=== PATIENT | male | born 1965 | race African-American/Black ===

== ENCOUNTER 2017-01-12 08:11 | Day surgery (SDC) | payer MEDICARE, MEDICAID, OTHER ==
[~2017-01-12] VITALS: Ht 175.3 cm; Wt 90.7 kg
[~2017-01-12 08:11] MED LIST: AMLO10TA4 PO; ASPI-867 PO; CLOP75TA2 PO; GABA300C PO; HYDR-3511 PO; INSNOV SUBCUT; INSU100C11 SQ; SIMV20TA6 PO; SITA50TA3 PO
[2017-01-12] MEDS ORDERED: IODIXANOL 320MG/ML 100 ML BOTTLE IV ONE (09:47)
[2017-01-12] MEDS ORDERED: LIDOCAINE HCL 1% 20ML VIAL (Pyxis) INJ ONE (09:47)
[2017-01-12] MEDS ORDERED: HYDROCORTISONE SOD SUCCINATE 250 MG/2 ML VIAL ONE (09:50)
[2017-01-12] MEDS ORDERED: DIPHENHYDRAMINE 50MG/ML VIAL ONE (09:50)
[2017-01-12] MEDS ORDERED: FAMOTIDINE 20MG/2ML VIAL IV ONE (09:50)
[2017-01-12] MEDS ORDERED: MIDAZOLAM HCL 2 MG/2 ML VIAL ONE ×2 (10:03→10:30)
[2017-01-12] MEDS ORDERED: FENTANYL CITRATE/PF 50MCG/ML 2ML VIAL ONE (10:03)
[2017-01-12] MEDS ORDERED: jardiance PO (10:21)
[2017-01-12] MEDS ORDERED: ASPI-1035 PO (10:21)
[2017-01-12] MEDS ORDERED: LABETALOL HCL 5MG/ML VIAL 20ML IV ONE (10:47)
[2017-01-12] MEDS ORDERED: ONDANSETRON HCL 4MG/2ML VIAL IV PRN (17:00)
[2017-01-12] MEDS ORDERED: ACETAMINOPHEN 325MG TABLET PO PRN (17:00)
[2017-01-12] MEDS ORDERED: MORPHINE SULFATE 2 MG/ML CPJ (NOT FOR IM USE) IV PRN (17:00)
[2017-01-13] MEDS ORDERED: GABAPENTIN 300MG CAPSULE PO SCH (09:00)
[2017-01-13] MEDS ORDERED: CLOPIDOGREL 75MG TABLET PO SCH (09:00)
[2017-01-13] MEDS ORDERED: ASPIRIN 325MG EC TABLET PO SCH (09:00)
[2017-01-13] MEDS ORDERED: ASPIRIN 81MG EC TABLET PO SCH (09:00)
[2017-01-13] MEDS ORDERED: AMLODIPINE 10MG TABLET PO SCH (09:00)
== END 2017-01-12 17:10 | disposition home or self-care (01) ==
LOC: CCL 08:11
PROVIDERS: ATTEND Specialist
DX: I70.211 Atherosclerosis of native arteries of extremities with intermittent claudication, right leg (principal); E11.319 Type 2 diabetes mellitus with unspecified diabetic retinopathy without macular edema; E78.5 Hyperlipidemia, unspecified; I12.9 Hypertensive chronic kidney disease with stage 1 through stage 4 chronic kidney disease, or unspecified chronic kidney disease; E11.22 Type 2 diabetes mellitus with diabetic chronic kidney disease; N18.9 Chronic kidney disease, unspecified; Z79.4 Long term (current) use of insulin; Z89.512 Acquired absence of left leg below knee
CPT/HCPCS: 36247; 75710; 82962; C1760; C1769; C1893; J1200; J1644; J1720; J2250; J3010; J3490; Q9967

== ENCOUNTER 2018-07-26 06:27 | Inpatient (IN) | payer MEDICARE, OTHER ==
[2018-07-26] VITALS (12 sets, daily range): BP systolic 124–154; BP diastolic 50–91
[~2018-07-26] VITALS: Ht 175.3 cm; Wt 93.9 kg
[~2018-07-26 06:27] MED LIST changes: +ASA5EC PO; +ASPI-1159 PO; -ASPI-867 PO; +CLOP75TA16 PO; -CLOP75TA2 PO; +DIPH25CA83 PO; +GABA-290 PO; +HYDR-523 PO; +P50 PO; +SITA100T11 PO; +ZOLP10TA2 PO; +jardiance PO
[2018-07-26] MEDS ORDERED: FENTANYL CITRATE/PF 50MCG/ML 2ML VIAL ONE (08:20)
[2018-07-26] MEDS ORDERED: MIDAZOLAM HCL 2 MG/2 ML VIAL ONE (08:20)
[2018-07-26] MEDS ORDERED: LIDOCAINE HCL 1% 20ML VIAL (Pyxis) INJ ONE (08:21)
[2018-07-26] MEDS ORDERED: IODIXANOL 320MG/ML 100 ML BOTTLE IV ONE ×2 (08:21→09:22)
[2018-07-26] MEDS ORDERED: HYDROCORTISONE SOD SUCCINATE 250 MG/2 ML VIAL ONE (08:21)
[2018-07-26] MEDS ORDERED: DIPHENHYDRAMINE 50MG/ML VIAL ONE (08:21)
[2018-07-26] MEDS ORDERED: FAMOTIDINE 20MG/2ML VIAL IV ONE (08:22)
[2018-07-26] MEDS ORDERED: IOHEXOL-300 100 ML BOTTLE ONE (08:58)
[2018-07-26] MEDS ORDERED: ASPIRIN 325MG TABLET ONE (09:42)
[2018-07-26] MEDS ORDERED: CLOPIDOGREL 75MG TABLET ONE (09:42)
[2018-07-26] MEDS ORDERED: ONDANSETRON HCL 4MG/2ML INJ IV PRN ×2 (10:00→13:45)
[2018-07-26] MEDS ORDERED: ATROPINE SULFATE 1MG/10ML SYR IV PRN (10:00)
[2018-07-26] MEDS ORDERED: ACETAMINOPHEN 325MG TABLET PO PRN ×2 (10:00→13:45)
[2018-07-26] MEDS ORDERED: NA PHOS,M-B/NA PHOS,DI-BA ENEMA 118ML PR PRN (13:45)
[2018-07-26] MEDS ORDERED: GUAIFENESIN 200MG/10ML SUGAR FREE UDC PO PRN (13:45)
[2018-07-26] MEDS ORDERED: DOCUSATE SODIUM 100MG CAPSULE PO PRN (13:45)
[2018-07-26] MEDS ORDERED: CLONIDINE 0.1MG TABLET PO PRN (13:45)
[2018-07-26] MEDS ORDERED: HYDROCODONE/ACETAMINOPHEN 5/325MG TABLET PO PRN (13:45)
[2018-07-26] MEDS ORDERED: MAGNESIUM/ALUMINUM HYDROXIDE/SIMETHICONE 30ML UDC PO PRN (13:45)
[2018-07-26] MEDS ORDERED: HEPARIN SODIUM 1,000 UNIT/1ML VIAL IV ONE (15:17)
[2018-07-26] MEDS: AMLODIPINE 10MG TABLET PO SCH (15:17)
[2018-07-26] MEDS ORDERED: DEXTROSE 50% WATER 50ML SYRINGE IV PRN (15:30)
[2018-07-26] MEDS ORDERED: NICARDIPINE 100MCG/ML 10ML VIAL (CATH LAB) IV ONE (16:07)
[2018-07-26] MEDS ORDERED: NITROGLYCERIN 50MCG/ML 10ML VIAL (CATH LAB) IV ONE (16:07)
[2018-07-26] MEDS: BLOOD SUGAR DIAGNOSTIC STRIP TEST SCH ×2 (16:55→21:26)
[2018-07-26] MEDS: INSULIN LISPRO 100 UNITS/ML SUBCUT SCH ×2 (17:18→21:34)
[2018-07-26] MEDS ORDERED: ATORVASTATIN CALCIUM 20MG TABLET PO SCH (21:00)
[2018-07-26] MEDS: FAMOTIDINE 20MG TABLET PO SCH (21:32)
[2018-07-26] MEDS: GABAPENTIN 300MG CAPSULE PO SCH (21:33)
[2018-07-27] VITALS: BP 137/83
[2018-07-27 01:49] VITALS: BP 148/90
[2018-07-27 04:00] VITALS: BP 139/65
[2018-07-27 06:02] VITALS: BP 143/81
[2018-07-27] MEDS: BLOOD SUGAR DIAGNOSTIC STRIP TEST SCH ×2 (06:40→11:53)
[2018-07-27 07:29] LABS: BASOPHILS % 0.5 % (0.0-2.0); HEMATOCRIT. 43.8 % (42.0-52.0); HEMOGLOBIN. 14.1 g/dL (14.0-18.0); LYMPHOCYTES % 17.9 % (20.0-50.0); MEAN CORPUSCULAR HEMOGLOBIN 27.2 pg (28.0-32.0); MEAN CORPUSCULAR VOLUME 84.2 fL (80.0-94.0); MEAN PLATELET VOLUME 8.6 fl (7.4-10.4); NEUTROPHILS % 76.6 % (40.0-76.0); PLATELET 231 x1000/uL (130-400); RED BLOOD CELL COUNT 5.19 mill/uL (4.7-6.1); RED CELL DISTRIBUTION WIDTH 14.6 % (11.6-14.6)
[2018-07-27 08:01] VITALS: BP 129/25
[2018-07-27] MEDS: AMLODIPINE 10MG TABLET PO SCH (08:26)
[2018-07-27] MEDS: FAMOTIDINE 20MG TABLET PO SCH (08:28)
[2018-07-27] MEDS: GABAPENTIN 300MG CAPSULE PO SCH (08:29)
[2018-07-27] MEDS: INSULIN LISPRO 100 UNITS/ML SUBCUT SCH ×2 (08:31→11:53)
[2018-07-27] MEDS ORDERED: ASPIRIN 325MG TABLET PO SCH (09:00)
[2018-07-27] MEDS ORDERED: CLOPIDOGREL 75MG TABLET PO SCH (09:00)
[2018-07-27] MEDS ORDERED: GABAPENTIN 300MG CAPSULE PO SCH (09:00)
[2018-07-27] MEDS ORDERED: INSU100I22 SQ (09:44)
[2018-07-27 09:45] VITALS: BP 134/78
== END 2018-07-27 12:08 | disposition home or self-care (01) | DRG 247 ==
LOC: CCL 06:27 → 3WST 06:28
PROVIDERS: ADMIT Hospitalist; ATTEND Hospitalist
PROC: 4A023N7 Measurement of Cardiac Sampling and Pressure, Left Heart, Percutaneous Approach (ICD-10-PCS; principal; 2018-07-26)
PROC: 027135Z Dilation of Coronary Artery, Two Arteries with Two Drug-eluting Intraluminal Devices, Percutaneous Approach (ICD-10-PCS; 2018-07-26)
PROC: B2111ZZ Fluoroscopy of Multiple Coronary Arteries using Low Osmolar Contrast (ICD-10-PCS; 2018-07-26)
PROC: B2151ZZ Fluoroscopy of Left Heart using Low Osmolar Contrast (ICD-10-PCS; 2018-07-26)
PROC: B240ZZ3 Ultrasonography of Single Coronary Artery, Intravascular (ICD-10-PCS; 2018-07-26)
DX: T82.855A Stenosis of coronary artery stent, initial encounter (principal); I25.110 Atherosclerotic heart disease of native coronary artery with unstable angina pectoris; I11.9 Hypertensive heart disease without heart failure; E11.319 Type 2 diabetes mellitus with unspecified diabetic retinopathy without macular edema; E11.51 Type 2 diabetes mellitus with diabetic peripheral angiopathy without gangrene; E78.5 Hyperlipidemia, unspecified; H54.7 Unspecified visual loss; Y83.1 Surgical operation with implant of artificial internal device as the cause of abnormal reaction of the patient, or of later complication, without mention of misadventure at the time of the procedure; Y92.89 Other specified places as the place of occurrence of the external cause; Z79.02 Long term (current) use of antithrombotics/antiplatelets; Z79.4 Long term (current) use of insulin; Z89.512 Acquired absence of left leg below knee; Z90.49 Acquired absence of other specified parts of digestive tract; Z91.041 Radiographic dye allergy status; Z82.49 Family history of ischemic heart disease and other diseases of the circulatory system
CPT/HCPCS: 36415; 80048; 82962; 83036; 85347; 92928; 92978; 93458; C1725; C1753; C1769; C1874 ×2; C1887; C1893; J1200; J1644; J1720; J1815; J2250; J3010; J3490; Q9967

== ENCOUNTER 2019-05-09 07:03 | Day surgery (SDC) | payer MEDICARE, OTHER, MEDICAID ==
[~2019-05-09] VITALS: Ht 175.3 cm; Wt 87.5 kg
[~2019-05-09 07:03] MED LIST changes: -ASA5EC PO; -ASPI-1159 PO; +ASPI-1393 PO; -CLOP75TA16 PO; +CLOP75TA4 PO; -DIPH25CA83 PO; -GABA300C PO; -HYDR-3511 PO; -INSU100C11 SQ; +INSU100I22 SQ; -P50 PO; -SITA50TA3 PO; -jardiance PO
[2019-05-09] MEDS ORDERED: IODIXANOL 320MG/ML 100 ML BOTTLE IV ONE (08:17)
[2019-05-09] MEDS ORDERED: LIDOCAINE HCL 1% 20ML VIAL (Pyxis) INJ ONE (08:17)
[2019-05-09] MEDS ORDERED: DIPHENHYDRAMINE 50MG/ML VIAL ONE (08:44)
[2019-05-09] MEDS ORDERED: HYDROCORTISONE SOD SUCCINATE 250 MG/2 ML VIAL ONE (08:45)
[2019-05-09] MEDS ORDERED: FAMOTIDINE 20MG/2ML VIAL IV ONE (08:45)
[2019-05-09] MEDS ORDERED: FENTANYL CITRATE/PF 50MCG/ML 2ML VIAL ONE (09:06)
[2019-05-09] MEDS ORDERED: MIDAZOLAM HCL 2 MG/2 ML VIAL ONE (09:06)
[2019-05-09] MEDS ORDERED: INSULIN REGULAR (HUMULIN R) UD 100 UNITS/ML SYR SUBCUT NR (09:30)
[2019-05-09] MEDS ORDERED: ACETAMINOPHEN 325MG TABLET PO PRN (09:30)
[2019-05-09] MEDS ORDERED: ONDANSETRON HCL 4MG/2ML INJ IV PRN (09:30)
== END 2019-05-09 16:15 | disposition home or self-care (01) ==
LOC: CCL 07:03
PROVIDERS: ATTEND Specialist
DX: T82.856A Stenosis of peripheral vascular stent, initial encounter (principal); I25.10 Atherosclerotic heart disease of native coronary artery without angina pectoris; E78.5 Hyperlipidemia, unspecified; I12.9 Hypertensive chronic kidney disease with stage 1 through stage 4 chronic kidney disease, or unspecified chronic kidney disease; E11.42 Type 2 diabetes mellitus with diabetic polyneuropathy; E11.22 Type 2 diabetes mellitus with diabetic chronic kidney disease; N18.9 Chronic kidney disease, unspecified; N40.1 Benign prostatic hyperplasia with lower urinary tract symptoms; K21.9 Gastro-esophageal reflux disease without esophagitis; Z79.4 Long term (current) use of insulin; Z79.82 Long term (current) use of aspirin; Z79.899 Other long term (current) drug therapy; Z88.8 Allergy status to other drugs, medicaments and biological substances; Z91.041 Radiographic dye allergy status; Z89.512 Acquired absence of left leg below knee; Z90.49 Acquired absence of other specified parts of digestive tract; Z98.890 Other specified postprocedural states; Z83.3 Family history of diabetes mellitus; Z82.49 Family history of ischemic heart disease and other diseases of the circulatory system; Z87.891 Personal history of nicotine dependence
CPT/HCPCS: 36246; 75710; 82962; 99152; 99153; C1760; C1769; C1893; J1200; J1644; J1720; J1815; J2250; J3010; J3490; Q9967; G0500

== ENCOUNTER 2019-06-13 10:35 | Inpatient (IN) | payer MEDICARE, OTHER ==
[~2019-06-13] VITALS: Ht 175.3 cm; Wt 89.8 kg
[~2019-06-13 10:35] MED LIST changes: -AMLO10TA4 PO
[2019-06-13] MEDS: SODIUM CHLORIDE 0.45% 1,000 ML IV SCH ×2 (12:18→23:58)
[2019-06-13] MEDS ORDERED: IODIXANOL 320MG/ML 100 ML BOTTLE IV ONE (14:17)
[2019-06-13] MEDS ORDERED: ONDANSETRON HCL 4MG/2ML INJ IV PRN (15:15)
[2019-06-13] MEDS ORDERED: ACETAMINOPHEN 325MG TABLET PO PRN (15:15)
[2019-06-13] MEDS ORDERED: ATROPINE SULFATE 1MG/10ML SYR IV PRN (15:15)
[2019-06-13 16:00] VITALS: BP 159/101
[2019-06-13 16:40] VITALS: BP 163/67
[2019-06-13 17:02] VITALS: BP 152/112
[2019-06-13 17:46] VITALS: BP 149/100
[2019-06-13] MEDS ORDERED: HYDROCODONE/ACETAMINOPHEN 5/325MG TABLET PO PRN (19:30)
[2019-06-13] MEDS ORDERED: DEXTROSE 50% WATER 50ML SYRINGE IV PRN (19:30)
[2019-06-13] MEDS ORDERED: MEDICATION NOT ON FORMULARY EA (Simvastatin 20 MG) PO SCH (19:30)
[2019-06-13] MEDS ORDERED: ZOLPIDEM TARTRATE 5MG TABLET PO PRN (19:45)
[2019-06-13 20:00] VITALS: BP 162/72
[2019-06-13] MEDS: GABAPENTIN 300MG CAPSULE PO SCH (20:01)
[2019-06-13] MEDS: BLOOD SUGAR DIAGNOSTIC STRIP TEST SCH (20:22)
[2019-06-13] MEDS: INSULIN LISPRO 100 UNITS/ML SUBCUT SCH (20:35)
[2019-06-13] MEDS ORDERED: ATORVASTATIN CALCIUM 10MG TABLET PO SCH (21:00)
[2019-06-13] MEDS ORDERED: INSULIN LISPRO 100 UNITS/ML SUBCUT SCH (21:00)
[2019-06-13 22:00] VITALS: BP 156/117
[2019-06-14] VITALS: BP 151/86
[2019-06-14 02:00] VITALS: BP 144/86
[2019-06-14 04:00] VITALS: BP 134/74
[2019-06-14 06:00] VITALS: BP 152/95
[2019-06-14] MEDS: BLOOD SUGAR DIAGNOSTIC STRIP TEST SCH (06:13)
[2019-06-14] MEDS ORDERED: ASPIRIN 325MG TABLET PO SCH (09:00)
[2019-06-14] MEDS ORDERED: LINAGLIPTIN 5MG TABLET PO SCH (09:00)
[2019-06-14] MEDS ORDERED: MEDICATION NOT ON FORMULARY EA (Sitagliptin Phosphate (Januvia) 100 MG) PO SCH (09:00)
[2019-06-14] MEDS ORDERED: ASPIRIN 81MG EC TABLET PO SCH (09:00)
[2019-06-14] MEDS ORDERED: CLOPIDOGREL 75MG TABLET PO SCH ×2 (09:00)
[2019-06-14 09:48] LABS: BASOPHILS % 0.2 % (0.0-2.0); HEMATOCRIT. 37.6 % (42.0-52.0); HEMOGLOBIN. 12.2 g/dL (14.0-18.0); LYMPHOCYTES % 14.3 % (20.0-50.0); MEAN CORPUSCULAR HEMOGLOBIN 26.7 pg (28.0-32.0); MEAN CORPUSCULAR VOLUME 82.4 fL (80.0-94.0); MEAN PLATELET VOLUME 7.7 fl (7.4-10.4); MONOCYTES % 4.6 % (2.0-8.0); NEUTROPHILS % 80.9 % (40.0-76.0); PLATELET 403 x1000/uL (130-400); RED BLOOD CELL COUNT 4.57 mill/uL (4.7-6.1); RED CELL DISTRIBUTION WIDTH 14.9 % (11.6-14.6)
[2019-06-14 09:51] LABS: CHLORIDE 100 mEq/L (98-107)
[2019-06-14] MEDS: GABAPENTIN 300MG CAPSULE PO SCH (09:54)
[2019-06-14] MEDS: INSULIN LISPRO 100 UNITS/ML SUBCUT SCH (10:03)
== END 2019-06-14 10:54 | disposition home or self-care (01) | DRG 287 ==
LOC: CCL 10:35 → 3WST 10:36
PROVIDERS: ADMIT Specialist; ATTEND Specialist
PROC: 4A023N7 Measurement of Cardiac Sampling and Pressure, Left Heart, Percutaneous Approach (ICD-10-PCS; principal; 2019-06-13)
PROC: B2111ZZ Fluoroscopy of Multiple Coronary Arteries using Low Osmolar Contrast (ICD-10-PCS; 2019-06-13)
DX: I25.118 Atherosclerotic heart disease of native coronary artery with other forms of angina pectoris (principal); T82.855A Stenosis of coronary artery stent, initial encounter; I10 Essential (primary) hypertension; E78.5 Hyperlipidemia, unspecified; E88.81 Metabolic syndrome and other insulin resistance; E11.40 Type 2 diabetes mellitus with diabetic neuropathy, unspecified; Y83.8 Other surgical procedures as the cause of abnormal reaction of the patient, or of later complication, without mention of misadventure at the time of the procedure; G54.6 Phantom limb syndrome with pain; I25.82 Chronic total occlusion of coronary artery; E11.51 Type 2 diabetes mellitus with diabetic peripheral angiopathy without gangrene; F51.04 Psychophysiologic insomnia; N40.0 Benign prostatic hyperplasia without lower urinary tract symptoms; Z79.4 Long term (current) use of insulin; Z82.49 Family history of ischemic heart disease and other diseases of the circulatory system; Z95.5 Presence of coronary angioplasty implant and graft; Z89.512 Acquired absence of left leg below knee; I25.2 Old myocardial infarction; Z90.49 Acquired absence of other specified parts of digestive tract; Z91.041 Radiographic dye allergy status; Y92.89 Other specified places as the place of occurrence of the external cause
CPT/HCPCS: 36415; 71045; 80048; 82962; 93005; 93458; C1760; C1769; C1887; C1893; J1200; J1644; J1720; J1815; J2250; J3010; J3490; Q9967

== ENCOUNTER 2019-06-23 19:14 | Inpatient (IN) | payer MEDICARE, OTHER ==
[~2019-06-23] VITALS: Ht 175.3 cm; Wt 91.2 kg
[2019-06-23] MEDS ORDERED: SODIUM CHLORIDE 0.9% 1,000 ML IV ONE (19:16)
[2019-06-23 19:39] LABS: BASOPHILS % 0.6 % (0.0-2.0); CHLORIDE 101 mEq/L (98-107); EOSINOPHILS % 1.4 % (0.0-5.0); HEMATOCRIT. 32.6 % (42.0-52.0); HEMOGLOBIN. 10.5 g/dL (14.0-18.0); LYMPHOCYTES % 23.2 % (20.0-50.0); MEAN CORPUSCULAR HEMOGLOBIN 26.5 pg (28.0-32.0); MEAN CORPUSCULAR VOLUME 82.5 fL (80.0-94.0); MEAN PLATELET VOLUME 7.4 fl (7.4-10.4); MONOCYTES % 4.8 % (2.0-8.0); PLATELET 351 x1000/uL (130-400); RED BLOOD CELL COUNT 3.95 mill/uL (4.7-6.1); RED CELL DISTRIBUTION WIDTH 15.2 % (11.6-14.6)
[2019-06-23 19:40] LABS: PROTHROMBIN TIME 10.4 sec (9.6-11.0)
[2019-06-23 19:43] LABS: ETHANOL BLOOD < 10 mg/dL
[2019-06-23 19:46] LABS: LDL CHOLESTEROL 54 mg/dL (5-100)
[2019-06-23 19:48] LABS: CREATINE KINASE 116 IU/L (39-308)
[2019-06-23] MEDS ORDERED: ASPIRIN 81MG TABLET PO ONE (21:45)
[2019-06-23] MEDS ORDERED: ACETAMINOPHEN 325MG TABLET PO PRN (21:45)
[2019-06-23] MEDS ORDERED: HYDROCODONE/ACETAMINOPHEN 5/325MG TABLET PO PRN (21:45)
[2019-06-23] MEDS ORDERED: FUROSEMIDE 20MG/2ML VIAL IVP ONE (21:45)
[2019-06-23] MEDS ORDERED: CLONIDINE 0.1MG TABLET PO PRN (21:45)
[2019-06-23] MEDS ORDERED: ZOLPIDEM TARTRATE 5MG TABLET PO PRN (21:45)
[2019-06-23] MEDS ORDERED: ONDANSETRON HCL 4MG/2ML INJ IV PRN (21:45)
[2019-06-23] MEDS ORDERED: ENOXAPARIN 30MG/0.3ML SYR SUBCUT SCH (22:00)
[2019-06-23] MEDS ORDERED: ENOXAPARIN 40MG/0.4ML SYR SUBCUT SCH (23:00)
[2019-06-23] MEDS ORDERED: INSULIN GLARGINE UD 100 UNITS/ML SYR SUBCUT SCH (23:00)
[2019-06-23] MEDS: ATORVASTATIN CALCIUM 40MG TABLET PO SCH (23:03)
[2019-06-23 23:40] VITALS: BP 141/84
[2019-06-24 00:34] LABS: CLARITY URINE CLEAR (CLEAR); COLOR URINE YELLOW (YELLOW); KETONES URINE NEGATIVE (NEGATIVE); LEUKOCYTE ESTERASE URINE NEGATIVE (NEGATIVE); NITRITE URINE NEGATIVE (NEGATIVE); OCCULT BLOOD URINE NEGATIVE (NEGATIVE); PROTEIN URINE NEGATIVE (NEGATIVE)
[2019-06-24 00:55] LABS: *AMPHETAMINES SCREEN URINE NEGATIVE (NEGATIVE); *BARBITURATES SCREEN URINE NEGATIVE (NEGATIVE); *BENZODIAZEPINES SCREEN URINE NEGATIVE (NEGATIVE); *COCAINE SCREEN URINE NEGATIVE (NEGATIVE); METHADONE URINE SCREEN NEGATIVE (NEGATIVE); OPIATES URINE SCREEN NEGATIVE (NEGATIVE)
[2019-06-24 00:56] LABS: CANNABINOID URINE SCREEN NEGATIVE (NEGATIVE); PHENCYCLIDINE URINE SCREEN NEGATIVE (NEGATIVE)
[2019-06-24] MEDS ORDERED: DEXTROSE 50% WATER 50ML SYRINGE IV PRN (03:30)
[2019-06-24 04:00] VITALS: BP 112/60
[2019-06-24] MEDS ORDERED: SIMV40TA5 PO (04:36)
[2019-06-24] MEDS: BLOOD SUGAR DIAGNOSTIC STRIP TEST SCH ×4 (06:47→20:41)
[2019-06-24] MEDS: INSULIN LISPRO 100 UNITS/ML SUBCUT SCH ×4 (07:08→20:41)
[2019-06-24 08:00] VITALS: BP 158/90
[2019-06-24 08:36] LABS: BASOPHILS % 0.7 % (0.0-2.0); EOSINOPHILS % 1.4 % (0.0-5.0); HEMATOCRIT. 32.2 % (42.0-52.0); HEMOGLOBIN. 10.3 g/dL (14.0-18.0); LYMPHOCYTES % 25.3 % (20.0-50.0); MEAN CORPUSCULAR HEMOGLOBIN 26.5 pg (28.0-32.0); MEAN PLATELET VOLUME 7.6 fl (7.4-10.4); MONOCYTES % 5.1 % (2.0-8.0); NEUTROPHILS % 67.5 % (40.0-76.0); PLATELET 330 x1000/uL (130-400); RED BLOOD CELL COUNT 3.87 mill/uL (4.7-6.1); RED CELL DISTRIBUTION WIDTH 15.2 % (11.6-14.6)
[2019-06-24 08:52] LABS: CHLORIDE 103 mEq/L (98-107)
[2019-06-24] MEDS: ASPIRIN 81MG EC TABLET PO SCH (08:55)
[2019-06-24] MEDS: GABAPENTIN 300MG CAPSULE PO SCH ×3 (08:55→20:31)
[2019-06-24] MEDS: CLOPIDOGREL 75MG TABLET PO SCH (08:55)
[2019-06-24 08:56] LABS: LDL CHOLESTEROL 56 mg/dL (5-100)
[2019-06-24 08:58] LABS: HDL CHOLESTEROL 39 mg/dL (40-59)
[2019-06-24] MEDS ORDERED: ENOXAPARIN 30MG/0.3ML SYR SUBCUT SCH (09:00)
[2019-06-24 11:54] VITALS: BP 149/86
[2019-06-24] MEDS: FAMOTIDINE 20MG TABLET PO SCH (14:20)
[2019-06-24 16:00] VITALS: BP 123/66
[2019-06-24 20:00] VITALS: BP 140/80
[2019-06-24] MEDS: ATORVASTATIN CALCIUM 40MG TABLET PO SCH (20:31)
[2019-06-24 21:12] LABS: *AMPHETAMINES SCREEN URINE NEGATIVE (NEGATIVE); *BARBITURATES SCREEN URINE NEGATIVE (NEGATIVE); *BENZODIAZEPINES SCREEN URINE NEGATIVE (NEGATIVE); *COCAINE SCREEN URINE NEGATIVE (NEGATIVE); METHADONE URINE SCREEN NEGATIVE (NEGATIVE)
[2019-06-24 21:13] LABS: CANNABINOID URINE SCREEN NEGATIVE (NEGATIVE); OPIATES URINE SCREEN NEGATIVE (NEGATIVE); PHENCYCLIDINE URINE SCREEN NEGATIVE (NEGATIVE)
[2019-06-24] MEDS ORDERED: INSULIN GLARGINE UD 100 UNITS/ML SYR SUBCUT SCH (22:00)
[2019-06-24] MEDS: INSULIN GLARGINE UD 100 UNITS/ML SYR SUBCUT SCH (22:34)
[2019-06-25] VITALS: BP 116/60
[2019-06-25 04:00] VITALS: BP 142/83
[2019-06-25 06:16] LABS: BASOPHILS % 0.8 % (0.0-2.0); EOSINOPHILS % 1.4 % (0.0-5.0); HEMATOCRIT. 32.1 % (42.0-52.0); HEMOGLOBIN. 10.3 g/dL (14.0-18.0); LYMPHOCYTES % 23.7 % (20.0-50.0); MEAN CORPUSCULAR HEMOGLOBIN 26.5 pg (28.0-32.0); MEAN CORPUSCULAR VOLUME 82.4 fL (80.0-94.0); MEAN PLATELET VOLUME 7.6 fl (7.4-10.4); MONOCYTES % 5.2 % (2.0-8.0); NEUTROPHILS % 68.9 % (40.0-76.0); PLATELET 323 x1000/uL (130-400); RED CELL DISTRIBUTION WIDTH 15.2 % (11.6-14.6)
[2019-06-25] MEDS: BLOOD SUGAR DIAGNOSTIC STRIP TEST SCH ×4 (06:20→21:00)
[2019-06-25] MEDS: INSULIN LISPRO 100 UNITS/ML SUBCUT SCH ×4 (06:45→22:15)
[2019-06-25 06:52] LABS: CHLORIDE 102 mEq/L (98-107)
[2019-06-25 07:00] LABS: HDL CHOLESTEROL 40 mg/dL (40-59)
[2019-06-25 07:01] LABS: LDL CHOLESTEROL 54 mg/dL (5-100)
[2019-06-25 07:02] LABS: CREATINE KINASE 86 IU/L (39-308)
[2019-06-25 07:05] LABS: CREATINE KINASE MB FRACTION 1.2 ng/mL (0.5-3.6)
[2019-06-25 08:16] VITALS: BP 115/59
[2019-06-25] MEDS: ASPIRIN 81MG EC TABLET PO SCH (08:21)
[2019-06-25] MEDS: CLOPIDOGREL 75MG TABLET PO SCH (08:21)
[2019-06-25] MEDS: FAMOTIDINE 20MG TABLET PO SCH (08:21)
[2019-06-25] MEDS: ENOXAPARIN 40MG/0.4ML SYR SUBCUT SCH (08:22)
[2019-06-25] MEDS: GABAPENTIN 300MG CAPSULE PO SCH ×4 (08:22→22:20)
[2019-06-25 12:00] VITALS: BP 145/85
[2019-06-25 16:00] VITALS: BP 149/88
[2019-06-25 20:17] VITALS: BP 143/81
[2019-06-25] MEDS: INSULIN GLARGINE UD 100 UNITS/ML SYR SUBCUT SCH (22:16)
[2019-06-25] MEDS: ATORVASTATIN CALCIUM 10MG TABLET PO SCH (22:16)
[2019-06-26 00:01] VITALS: BP 144/77
[2019-06-26 04:00] VITALS: BP 143/67
[2019-06-26] MEDS: BLOOD SUGAR DIAGNOSTIC STRIP TEST SCH ×4 (06:06→21:56)
[2019-06-26] MEDS: INSULIN LISPRO 100 UNITS/ML SUBCUT SCH ×4 (06:09→21:00)
[2019-06-26 07:50] LABS: CHLORIDE 101 mEq/L (98-107)
[2019-06-26 08:00] VITALS: BP 123/70
[2019-06-26 08:16] LABS: BASOPHILS % 0.5 % (0.0-2.0); EOSINOPHILS % 1.2 % (0.0-5.0); HEMATOCRIT. 34.3 % (42.0-52.0); HEMOGLOBIN. 11.1 g/dL (14.0-18.0); LYMPHOCYTES % 21.8 % (20.0-50.0); MEAN CORPUSCULAR HEMOGLOBIN 26.6 pg (28.0-32.0); MEAN CORPUSCULAR VOLUME 82.2 fL (80.0-94.0); MEAN PLATELET VOLUME 7.6 fl (7.4-10.4); MONOCYTES % 6.2 % (2.0-8.0); NEUTROPHILS % 70.3 % (40.0-76.0); PLATELET 322 x1000/uL (130-400); RED BLOOD CELL COUNT 4.17 mill/uL (4.7-6.1); RED CELL DISTRIBUTION WIDTH 14.9 % (11.6-14.6)
[2019-06-26] MEDS: ASPIRIN 81MG EC TABLET PO SCH (09:13)
[2019-06-26] MEDS: CLOPIDOGREL 75MG TABLET PO SCH (09:13)
[2019-06-26] MEDS: FAMOTIDINE 20MG TABLET PO SCH (09:13)
[2019-06-26] MEDS: ENOXAPARIN 40MG/0.4ML SYR SUBCUT SCH (09:14)
[2019-06-26 12:00] VITALS: BP 132/73
[2019-06-26] MEDS ORDERED: GABAPENTIN 300MG CAPSULE PO SCH (15:00)
[2019-06-26 16:00] VITALS: BP 131/74
[2019-06-26] MEDS: PANTOPRAZOLE SODIUM 40 MG/VIAL IV SCH (17:52)
[2019-06-26 20:00] VITALS: BP 117/70
[2019-06-26] MEDS: CARVEDILOL 3.125 MG TABLET PO SCH ×2 (21:00→21:57)
[2019-06-26] MEDS: ATORVASTATIN CALCIUM 10MG TABLET PO SCH (21:57)
[2019-06-26] MEDS: GABAPENTIN 300MG CAPSULE PO SCH (22:02)
[2019-06-26] MEDS: INSULIN GLARGINE UD 100 UNITS/ML SYR SUBCUT SCH (22:06)
[2019-06-27] VITALS: BP 102/51
[2019-06-27 04:00] VITALS: BP 131/71
[2019-06-27] MEDS: BLOOD SUGAR DIAGNOSTIC STRIP TEST SCH (06:19)
[2019-06-27] MEDS: INSULIN LISPRO 100 UNITS/ML SUBCUT SCH (06:41)
[2019-06-27 07:53] LABS: CHLORIDE 103 mEq/L (98-107)
[2019-06-27 08:00] VITALS: BP 91/51
[2019-06-27 08:00] LABS: BASOPHILS % 0.5 % (0.0-2.0); HEMOGLOBIN. 10.4 g/dL (14.0-18.0); LYMPHOCYTES % 22.2 % (20.0-50.0); MEAN CORPUSCULAR HEMOGLOBIN 26.8 pg (28.0-32.0); MEAN CORPUSCULAR VOLUME 82.5 fL (80.0-94.0); MEAN PLATELET VOLUME 7.3 fl (7.4-10.4); MONOCYTES % 5.5 % (2.0-8.0); NEUTROPHILS % 69.8 % (40.0-76.0); PLATELET 332 x1000/uL (130-400); RED BLOOD CELL COUNT 3.89 mill/uL (4.7-6.1); RED CELL DISTRIBUTION WIDTH 15.1 % (11.6-14.6)
[2019-06-27] MEDS: ASPIRIN 81MG EC TABLET PO SCH (08:57)
[2019-06-27] MEDS: CARVEDILOL 3.125 MG TABLET PO SCH (08:58)
[2019-06-27] MEDS: ENOXAPARIN 40MG/0.4ML SYR SUBCUT SCH (08:58)
[2019-06-27] MEDS: CLOPIDOGREL 75MG TABLET PO SCH (08:58)
[2019-06-27] MEDS: PANTOPRAZOLE SODIUM 40 MG/VIAL IV SCH (08:59)
[2019-06-27] MEDS ORDERED: FUROSEMIDE 40MG TABLET PO SCH (09:00)
[2019-06-27 12:00] VITALS: BP 143/71
[2019-06-27 14:23] VITALS: BP 143/71
== END 2019-06-27 14:54 | disposition home or self-care (01) | DRG 64 ==
LOC: ER 19:14 → 8WST 21:38 → EDBEDREQ 21:50 → EDBEDREQSVC 21:50 → EDBEDREQTM 21:50 → ENRESERV 22:39 → 8WST 06-24 00:09
PROVIDERS: ADMIT Internal Medicine Nephrology; ATTEND Internal Medicine Nephrology
DX: I63.9 Cerebral infarction, unspecified (principal); L89.143 Pressure ulcer of left lower back, stage 3; E43 Unspecified severe protein-calorie malnutrition; E11.65 Type 2 diabetes mellitus with hyperglycemia; I25.10 Atherosclerotic heart disease of native coronary artery without angina pectoris; Z89.512 Acquired absence of left leg below knee; E11.51 Type 2 diabetes mellitus with diabetic peripheral angiopathy without gangrene; H54.8 Legal blindness, as defined in USA; E11.319 Type 2 diabetes mellitus with unspecified diabetic retinopathy without macular edema; I10 Essential (primary) hypertension; R29.810 Facial weakness; R47.01 Aphasia; E78.00 Pure hypercholesterolemia, unspecified; E78.5 Hyperlipidemia, unspecified; R53.1 Weakness; I65.21 Occlusion and stenosis of right carotid artery; G62.9 Polyneuropathy, unspecified; K21.9 Gastro-esophageal reflux disease without esophagitis; Z79.02 Long term (current) use of antithrombotics/antiplatelets; Z79.4 Long term (current) use of insulin; Z79.82 Long term (current) use of aspirin; Z79.899 Other long term (current) drug therapy; Z86.73 Personal history of transient ischemic attack (TIA), and cerebral infarction without residual deficits; Z95.5 Presence of coronary angioplasty implant and graft; Z91.041 Radiographic dye allergy status; Z88.9 Allergy status to unspecified drugs, medicaments and biological substances
CPT/HCPCS: 36415; 70551; 71045; 80048; 80061; 80305; 80320; 81003; 82550; 82553; 82962; 83036; 83721; 83735; 83880; 84484; 85379; 93005; 93306; 93880; 95816; 96361; 96372; 96374; 97162; 97166; 99291; C9113; J1650; J1815; J1940; J7030; Q9967; G0480

== ENCOUNTER 2020-01-04 16:06 | Inpatient (IN) | payer MEDICARE, MEDICAID, OTHER ==
[~2020-01-04] VITALS: Ht 175.3 cm; Wt 92.1 kg
[~2020-01-04 16:06] MED LIST changes: -ASPI-1393 PO; +ASPI-1497 PO; +SIMV-46 PO; -SIMV20TA6 PO; -SITA100T11 PO
[2020-01-04 17:41] LABS: BASOPHILS % 0.9 % (0.0-2.0); EOSINOPHILS % 0.6 % (0.0-5.0); HEMATOCRIT. 39.5 % (42.0-52.0); HEMOGLOBIN. 11.9 g/dL (14.0-18.0); LYMPHOCYTES % 13.5 % (20.0-50.0); MEAN CORPUSCULAR HEMOGLOBIN 22.2 pg (28.0-32.0); MEAN CORPUSCULAR VOLUME 73.9 fL (80.0-94.0); MEAN PLATELET VOLUME 7.9 fl (7.4-10.4); MONOCYTES % 5.8 % (2.0-8.0); NEUTROPHILS % 79.2 % (40.0-76.0); PLATELET 264 x1000/uL (130-400); RED BLOOD CELL COUNT 5.34 mill/uL (4.7-6.1)
[2020-01-04 17:48] LABS: CHLORIDE 94 mEq/L (98-107)
[2020-01-04 17:55] LABS: PLATELET ESTIMATE NORMAL
[2020-01-04 17:57] LABS: INR 1.2; PROTHROMBIN TIME 12.8 sec (9.6-11.0)
[2020-01-04] MEDS ORDERED: FUROSEMIDE 40MG/4ML VIAL IV ONE (18:15)
[2020-01-04] MEDS ORDERED: ASPIRIN 81MG TABLET PO ONE (18:15)
[2020-01-04] MEDS ORDERED: HYDROCODONE/ACETAMINOPHEN 5/325MG TABLET PO PRN (19:00)
[2020-01-04] MEDS ORDERED: CLONIDINE 0.1MG TABLET PO PRN (19:00)
[2020-01-04] MEDS ORDERED: ACETAMINOPHEN 325MG TABLET PO PRN (19:00)
[2020-01-04] MEDS ORDERED: ONDANSETRON HCL 4MG/2ML INJ IV PRN ×2 (19:00)
[2020-01-04] MEDS ORDERED: INSULIN GLARGINE UD 100 UNITS/ML SYR SUBCUT NR (22:30)
[2020-01-04] MEDS ORDERED: HEPARIN 5000 UNITS/ML VIAL SUBCUT SCH (22:30)
[2020-01-04] MEDS: ATORVASTATIN CALCIUM 10MG TABLET PO SCH (23:12)
[2020-01-05] VITALS (9 sets, daily range): BP systolic 97–144; BP diastolic 52–89
[2020-01-05] MEDS ORDERED: DEXTROSE 50% WATER 50ML SYRINGE IV PRN (06:00)
[2020-01-05] MEDS: PANTOPRAZOLE 40MG DR TABLET PO SCH (06:08)
[2020-01-05] MEDS: BLOOD SUGAR DIAGNOSTIC STRIP TEST SCH ×4 (06:17→20:15)
[2020-01-05] MEDS ORDERED: DIPHENHYDRAMINE 50MG/ML VIAL IV SCH (06:45)
[2020-01-05] MEDS ORDERED: FAMOTIDINE 20MG/2ML VIAL IV SCH (06:45)
[2020-01-05] MEDS ORDERED: METHYLPREDNISOLONE SOD SUCC 125 MG/2 ML VIAL IV SCH (06:45)
[2020-01-05] MEDS: INSULIN LISPRO 100 UNITS/ML SUBCUT SCH ×4 (07:20→20:36)
[2020-01-05 08:08] LABS: BASOPHILS % 0.7 % (0.0-2.0); EOSINOPHILS % 1.7 % (0.0-5.0); HEMATOCRIT. 38.5 % (42.0-52.0); HEMOGLOBIN. 11.8 g/dL (14.0-18.0); LYMPHOCYTES % 18.2 % (20.0-50.0); MEAN CORPUSCULAR HEMOGLOBIN 22.5 pg (28.0-32.0); MEAN CORPUSCULAR VOLUME 73.5 fL (80.0-94.0); MEAN PLATELET VOLUME 8.1 fl (7.4-10.4); MONOCYTES % 6.9 % (2.0-8.0); NEUTROPHILS % 72.5 % (40.0-76.0); PLATELET 282 x1000/uL (130-400); RED BLOOD CELL COUNT 5.24 mill/uL (4.7-6.1); RED CELL DISTRIBUTION WIDTH 22.6 % (11.6-14.6)
[2020-01-05 08:17] LABS: CHLORIDE 96 mEq/L (98-107)
[2020-01-05] MEDS ORDERED: GABAPENTIN 300MG CAPSULE PO SCH (09:00)
[2020-01-05] MEDS ORDERED: CLOPIDOGREL 75MG TABLET PO SCH (09:00)
[2020-01-05] MEDS: CARVEDILOL 3.125 MG TABLET PO SCH ×2 (12:19→20:15)
[2020-01-05] MEDS: GABAPENTIN 300MG CAPSULE PO SCH ×2 (12:19→20:35)
[2020-01-05] MEDS: ENOXAPARIN 80MG/0.8ML SYR SUBCUT SCH ×2 (12:20→20:21)
[2020-01-05] MEDS: FUROSEMIDE 40MG/4ML VIAL IVP SCH ×2 (12:20→20:15)
[2020-01-05] MEDS: LISINOPRIL 2.5MG TABLET PO SCH (12:21)
[2020-01-05] MEDS: MILRINONE 20MG-DEXT 5% PREMIX 100 ML IV SCH ×3 (12:34→22:32)
[2020-01-05] MEDS ORDERED: POTASSIUM CHLORIDE 20MEQ TABLET SR PO NR (15:15)
[2020-01-05 16:54] LABS: PHOSPHORUS 1.9 mg/dL (2.5-4.9)
[2020-01-05] MEDS: ASPIRIN 81MG TABLET PO SCH (17:05)
[2020-01-05 17:52] LABS: FOLIC ACID (FOLATE) SERUM 5.3 ng/mL (>5.38)
[2020-01-05] MEDS ORDERED: MAGNESIUM 2 G PREMIX 50 ML IV NR (19:30)
[2020-01-05] MEDS ORDERED: POTASSIUM PHOS,M-BASIC-D-BASIC 15 MMOL in DEXT 5% WATER 245 ML IV NR (20:00)
[2020-01-05] MEDS: ATORVASTATIN CALCIUM 10MG TABLET PO SCH (20:15)
[2020-01-05] MEDS: INSULIN GLARGINE UD 100 UNITS/ML SYR SUBCUT SCH (22:00)
[2020-01-06] VITALS (12 sets, daily range): BP systolic 84–147; BP diastolic 50–108
[2020-01-06] MEDS: ZOLPIDEM TARTRATE 5MG TABLET PO PRN (01:19)
[2020-01-06] MEDS: MILRINONE 20MG-DEXT 5% PREMIX 100 ML IV SCH (05:13)
[2020-01-06] MEDS: PANTOPRAZOLE 40MG DR TABLET PO SCH (06:25)
[2020-01-06] MEDS: BLOOD SUGAR DIAGNOSTIC STRIP TEST SCH ×4 (06:57→21:04)
[2020-01-06] MEDS: INSULIN LISPRO 100 UNITS/ML SUBCUT SCH ×4 (07:20→21:10)
[2020-01-06 08:03] LABS: INR 1.1; PARTIAL THROMBOPLASTIN TIME 36.2 sec (23.4-31.0); PROTHROMBIN TIME 12.3 sec (9.6-11.0)
[2020-01-06 08:08] LABS: CHLORIDE 96 mEq/L (98-107)
[2020-01-06 08:10] LABS: BASOPHILS % 0.7 % (0.0-2.0); EOSINOPHILS % 2.2 % (0.0-5.0); HEMATOCRIT. 35.8 % (42.0-52.0); HEMOGLOBIN. 11.1 g/dL (14.0-18.0); LYMPHOCYTES % 24.4 % (20.0-50.0); MEAN CORPUSCULAR HEMOGLOBIN 22.4 pg (28.0-32.0); MEAN CORPUSCULAR VOLUME 72.7 fL (80.0-94.0); NEUTROPHILS % 64.7 % (40.0-76.0); PLATELET 259 x1000/uL (130-400); RED BLOOD CELL COUNT 4.93 mill/uL (4.7-6.1); RED CELL DISTRIBUTION WIDTH 22.5 % (11.6-14.6)
[2020-01-06 08:16] LABS: PHOSPHORUS 2.6 mg/dL (2.5-4.9)
[2020-01-06] MEDS: ENOXAPARIN 80MG/0.8ML SYR SUBCUT SCH ×2 (09:00→20:43)
[2020-01-06] MEDS: CARVEDILOL 3.125 MG TABLET PO SCH ×2 (10:21→20:58)
[2020-01-06] MEDS: LISINOPRIL 2.5MG TABLET PO SCH (10:22)
[2020-01-06] MEDS: FUROSEMIDE 40MG/4ML VIAL IVP SCH ×2 (10:22→21:00)
[2020-01-06] MEDS: GABAPENTIN 300MG CAPSULE PO SCH ×2 (10:22→20:53)
[2020-01-06] MEDS ORDERED: LIDOCAINE HCL 1% 20ML VIAL (Pyxis) INJ ONE (11:17)
[2020-01-06] MEDS ORDERED: SODIUM BICARBONATE 4% (2.4MEQ) 5ML VIAL IV ONE (11:18)
[2020-01-06 17:10] LABS: HEMATOCRIT 35.3 % (42.0-52.0); HEMOGLOBIN 10.9 g/dL (14.0-18.0)
[2020-01-06] MEDS: ASPIRIN 81MG TABLET PO SCH (17:15)
[2020-01-06] MEDS: FAMOTIDINE 20MG TABLET PO SCH (20:53)
[2020-01-06] MEDS: ATORVASTATIN CALCIUM 10MG TABLET PO SCH (20:53)
[2020-01-06] MEDS: INSULIN GLARGINE UD 100 UNITS/ML SYR SUBCUT SCH (23:37)
[2020-01-07] VITALS (12 sets, daily range): BP systolic 82–121; BP diastolic 47–76
[2020-01-07] MEDS ORDERED: MILRINONE 20MG-DEXT 5% PREMIX 100 ML IV SCH (01:00)
[2020-01-07] MEDS ORDERED: SODIUM CHLORIDE 0.9% 500 ML IV SCH (02:00)
[2020-01-07 06:35] LABS: BASOPHILS % 0.8 % (0.0-2.0); EOSINOPHILS % 1.8 % (0.0-5.0); HEMATOCRIT. 34.9 % (42.0-52.0); HEMOGLOBIN. 10.6 g/dL (14.0-18.0); LYMPHOCYTES % 24.1 % (20.0-50.0); MEAN CORPUSCULAR HEMOGLOBIN 22.4 pg (28.0-32.0); MEAN CORPUSCULAR VOLUME 73.5 fL (80.0-94.0); MEAN PLATELET VOLUME 8.5 fl (7.4-10.4); MONOCYTES % 7.7 % (2.0-8.0); NEUTROPHILS % 65.6 % (40.0-76.0); PLATELET 235 x1000/uL (130-400); RED BLOOD CELL COUNT 4.75 mill/uL (4.7-6.1); RED CELL DISTRIBUTION WIDTH 22.3 % (11.6-14.6)
[2020-01-07] MEDS: FAMOTIDINE 20MG TABLET PO SCH ×2 (06:38→20:25)
[2020-01-07] MEDS: BLOOD SUGAR DIAGNOSTIC STRIP TEST SCH ×4 (06:38→21:06)
[2020-01-07 06:43] LABS: CHLORIDE 98 mEq/L (98-107)
[2020-01-07] MEDS: GABAPENTIN 300MG CAPSULE PO SCH ×2 (08:29→20:25)
[2020-01-07] MEDS: CLOPIDOGREL 75MG TABLET PO SCH (08:29)
[2020-01-07] MEDS: INSULIN LISPRO 100 UNITS/ML SUBCUT SCH ×4 (08:40→21:06)
[2020-01-07] MEDS: ENOXAPARIN 80MG/0.8ML SYR SUBCUT SCH (08:41)
[2020-01-07] MEDS: LISINOPRIL 2.5MG TABLET PO SCH (08:42)
[2020-01-07] MEDS: CARVEDILOL 3.125 MG TABLET PO SCH ×2 (08:42→20:25)
[2020-01-07] MEDS: FUROSEMIDE 40MG/4ML VIAL IVP SCH ×2 (08:45→20:24)
[2020-01-07] MEDS: ENOXAPARIN 30MG/0.3ML SYR SUBCUT SCH ×2 (09:00→09:13)
[2020-01-07] MEDS: MILRINONE 20MG-DEXT 5% PREMIX 100 ML IV SCH (12:50)
[2020-01-07] MEDS: ASPIRIN 81MG TABLET PO SCH (16:34)
[2020-01-07] MEDS: ATORVASTATIN CALCIUM 10MG TABLET PO SCH (20:25)
[2020-01-07] MEDS: INSULIN GLARGINE UD 100 UNITS/ML SYR SUBCUT SCH (22:00)
[2020-01-07] MEDS: ZOLPIDEM TARTRATE 5MG TABLET PO PRN (23:21)
[2020-01-08] VITALS (11 sets, daily range): BP systolic 90–132; BP diastolic 46–91
[2020-01-08] MEDS: MILRINONE 20MG-DEXT 5% PREMIX 100 ML IV SCH ×3 (02:45→10:30)
[2020-01-08] MEDS: FAMOTIDINE 20MG TABLET PO SCH ×2 (05:56→20:30)
[2020-01-08] MEDS: BLOOD SUGAR DIAGNOSTIC STRIP TEST SCH ×4 (05:56→20:30)
[2020-01-08] MEDS: INSULIN LISPRO 100 UNITS/ML SUBCUT SCH ×4 (07:14→21:08)
[2020-01-08 07:42] LABS: CHLORIDE 99 mEq/L (98-107)
[2020-01-08 07:54] LABS: BASOPHILS % 0.7 % (0.0-2.0); EOSINOPHILS % 1.8 % (0.0-5.0); HEMATOCRIT. 33.9 % (42.0-52.0); HEMOGLOBIN. 10.4 g/dL (14.0-18.0); LYMPHOCYTES % 19.1 % (20.0-50.0); MEAN CORPUSCULAR HEMOGLOBIN 22.6 pg (28.0-32.0); MEAN CORPUSCULAR VOLUME 73.4 fL (80.0-94.0); MEAN PLATELET VOLUME 8.5 fl (7.4-10.4); NEUTROPHILS % 70.4 % (40.0-76.0); PLATELET 233 x1000/uL (130-400); RED BLOOD CELL COUNT 4.62 mill/uL (4.7-6.1); RED CELL DISTRIBUTION WIDTH 22.6 % (11.6-14.6)
[2020-01-08] MEDS: CLOPIDOGREL 75MG TABLET PO SCH (08:06)
[2020-01-08] MEDS: FUROSEMIDE 40MG/4ML VIAL IVP SCH ×2 (08:06→20:29)
[2020-01-08] MEDS: LISINOPRIL 2.5MG TABLET PO SCH (08:07)
[2020-01-08] MEDS: GABAPENTIN 300MG CAPSULE PO SCH ×2 (08:07→20:30)
[2020-01-08] MEDS: CARVEDILOL 3.125 MG TABLET PO SCH ×2 (08:14→20:31)
[2020-01-08] MEDS ORDERED: ENOXAPARIN 40MG/0.4ML SYR SUBCUT SCH (10:00)
[2020-01-08 10:26] LABS: BG BASE EXCESS 7.8 mmol/L (-2.0-2.0); BG CARBOXYHEMOGLOBIN 0.7 % (0.5-1.5); BG DEOXYHEMOGLOBIN 6.3 % (0.0-5.0); BG FRACTION INSPIRED OXYGEN 21; BG HCO3 ACT 32.2 mmol/L (22.0-26.0); BG METHEMOGLOBIN 0.1 % (0.0-1.5); BG OXYGEN SATURATION 93.6 % (92.0-98.5); BG OXYHEMOGLOBIN 92.9 % (94.0-97.0); BG PCO2 44.2 mmHg (35.0-45.0); BG PO2 69.2 mmHg (75.0-100.0); BG SAMPLE SITE LEFT BRACHIAL; BG TOTAL HEMOGLOBIN 11.7 g/dL (12.0-18.0); BG VENT MODE ROOM AIR
[2020-01-08] MEDS: ASPIRIN 81MG TABLET PO SCH (17:11)
[2020-01-08] MEDS: ATORVASTATIN CALCIUM 10MG TABLET PO SCH (20:30)
[2020-01-08] MEDS: ZOLPIDEM TARTRATE 5MG TABLET PO PRN (22:19)
[2020-01-08] MEDS: INSULIN GLARGINE UD 100 UNITS/ML SYR SUBCUT SCH (22:20)
[2020-01-09] VITALS (12 sets, daily range): BP systolic 90–133; BP diastolic 45–92
[2020-01-09] MEDS: MILRINONE 20MG-DEXT 5% PREMIX 100 ML IV SCH (01:04)
[2020-01-09] MEDS: FAMOTIDINE 20MG TABLET PO SCH ×2 (06:50→21:13)
[2020-01-09 06:55] LABS: BASOPHILS % 0.7 % (0.0-2.0); EOSINOPHILS % 1.6 % (0.0-5.0); HEMATOCRIT. 32.8 % (42.0-52.0); HEMOGLOBIN. 10.3 g/dL (14.0-18.0); LYMPHOCYTES % 18.2 % (20.0-50.0); MEAN CORPUSCULAR HEMOGLOBIN 23.1 pg (28.0-32.0); MEAN CORPUSCULAR VOLUME 73.6 fL (80.0-94.0); MEAN PLATELET VOLUME 8.1 fl (7.4-10.4); MONOCYTES % 6.3 % (2.0-8.0); NEUTROPHILS % 73.2 % (40.0-76.0); PLATELET 219 x1000/uL (130-400); RED BLOOD CELL COUNT 4.46 mill/uL (4.7-6.1); RED CELL DISTRIBUTION WIDTH 22.2 % (11.6-14.6)
[2020-01-09] MEDS: BLOOD SUGAR DIAGNOSTIC STRIP TEST SCH ×4 (06:55→20:26)
[2020-01-09 06:59] LABS: INR 1.1; PROTHROMBIN TIME 11.9 sec (9.6-11.0)
[2020-01-09] MEDS: INSULIN LISPRO 100 UNITS/ML SUBCUT SCH ×4 (07:20→21:18)
[2020-01-09 08:01] LABS: CHLORIDE 98 mEq/L (98-107)
[2020-01-09 08:11] LABS: PHOSPHORUS 2.5 mg/dL (2.5-4.9)
[2020-01-09] MEDS ORDERED: LIDOCAINE HCL 1% 20ML VIAL (Pyxis) INJ ONE (08:21)
[2020-01-09] MEDS ORDERED: DIPHENHYDRAMINE 50MG/ML VIAL ONE (08:21)
[2020-01-09] MEDS ORDERED: FAMOTIDINE 20MG/2ML VIAL IV ONE (08:37)
[2020-01-09] MEDS ORDERED: IODIXANOL 320MG/ML 100 ML BOTTLE IV ONE (08:38)
[2020-01-09] MEDS ORDERED: HYDROCORTISONE SOD SUCCINATE 250 MG/2 ML VIAL ONE (08:40)
[2020-01-09] MEDS ORDERED: MIDAZOLAM HCL 2 MG/2 ML VIAL ONE (08:42)
[2020-01-09] MEDS ORDERED: FENTANYL CITRATE/PF 50MCG/ML 2ML VIAL ONE (08:42)
[2020-01-09] MEDS ORDERED: ACETAMINOPHEN 325MG TABLET PO PRN (10:15)
[2020-01-09] MEDS ORDERED: ATROPINE SULFATE 1MG/10ML SYR IV PRN (10:15)
[2020-01-09] MEDS ORDERED: ONDANSETRON HCL 4MG/2ML INJ IV PRN (10:15)
[2020-01-09] MEDS: FUROSEMIDE 40MG/4ML VIAL IVP SCH ×2 (10:40→21:07)
[2020-01-09] MEDS: LISINOPRIL 2.5MG TABLET PO SCH (10:43)
[2020-01-09] MEDS: CARVEDILOL 3.125 MG TABLET PO SCH ×2 (10:43→21:14)
[2020-01-09] MEDS: GABAPENTIN 300MG CAPSULE PO SCH ×2 (10:43→21:14)
[2020-01-09] MEDS: CLOPIDOGREL 75MG TABLET PO SCH (10:43)
[2020-01-09] MEDS: ASPIRIN 81MG TABLET PO SCH (17:32)
[2020-01-09] MEDS: ATORVASTATIN CALCIUM 10MG TABLET PO SCH (21:13)
[2020-01-09] MEDS: INSULIN GLARGINE UD 100 UNITS/ML SYR SUBCUT SCH (21:18)
[2020-01-09] MEDS: ZOLPIDEM TARTRATE 5MG TABLET PO PRN (23:10)
[2020-01-10] VITALS (8 sets, daily range): BP systolic 94–114; BP diastolic 52–75
[2020-01-10] MEDS: FAMOTIDINE 20MG TABLET PO SCH ×2 (06:56→21:23)
[2020-01-10] MEDS: BLOOD SUGAR DIAGNOSTIC STRIP TEST SCH ×4 (06:59→20:05)
[2020-01-10 07:23] LABS: BASOPHILS % 0.2 % (0.0-2.0); HEMATOCRIT. 36.3 % (42.0-52.0); HEMOGLOBIN. 11.1 g/dL (14.0-18.0); LYMPHOCYTES % 11.8 % (20.0-50.0); MEAN CORPUSCULAR HEMOGLOBIN 22.6 pg (28.0-32.0); MEAN CORPUSCULAR VOLUME 73.9 fL (80.0-94.0); MEAN PLATELET VOLUME 8.2 fl (7.4-10.4); MONOCYTES % 4.7 % (2.0-8.0); NEUTROPHILS % 83.3 % (40.0-76.0); PLATELET 229 x1000/uL (130-400); RED BLOOD CELL COUNT 4.91 mill/uL (4.7-6.1); RED CELL DISTRIBUTION WIDTH 22.8 % (11.6-14.6)
[2020-01-10 07:38] LABS: CHLORIDE 99 mEq/L (98-107)
[2020-01-10 07:43] LABS: GAMMA GLUTAMYL TRANSPEPTIDASE 84 IU/L (11-50)
[2020-01-10 07:44] LABS: AMYLASE 74 IU/L (25-115)
[2020-01-10] MEDS: FUROSEMIDE 40MG/4ML VIAL IVP SCH ×3 (09:00→21:28)
[2020-01-10] MEDS: LISINOPRIL 2.5MG TABLET PO SCH (09:00)
[2020-01-10] MEDS: CARVEDILOL 3.125 MG TABLET PO SCH ×2 (09:00→21:00)
[2020-01-10] MEDS: GABAPENTIN 300MG CAPSULE PO SCH ×3 (09:00→21:24)
[2020-01-10] MEDS ORDERED: LIDOCAINE HCL 1% 20ML VIAL (Pyxis) INJ ONE (10:07)
[2020-01-10] MEDS ORDERED: DIPHENHYDRAMINE 50MG/ML VIAL ONE (10:10)
[2020-01-10] MEDS ORDERED: FAMOTIDINE 20MG/2ML VIAL IV ONE (10:11)
[2020-01-10] MEDS ORDERED: GENTAMICIN/NS IRRIGATION 500 ML IR ONE (10:11)
[2020-01-10] MEDS ORDERED: HYDROCORTISONE SOD SUCCINATE 250 MG/2 ML VIAL ONE (10:12)
[2020-01-10] MEDS ORDERED: CEFAZOLIN 1000MG PREMIX 50 ML IV ONE ×2 (10:13→10:35)
[2020-01-10] MEDS ORDERED: IODIXANOL 320MG/ML 100 ML BOTTLE IV ONE (10:15)
[2020-01-10] MEDS ORDERED: PROPOFOL 10MG/ML 100ML 100 ML IV ONE (11:10)
[2020-01-10] MEDS ORDERED: GENTAMICIN SULF 40MG/ML 2ML VIAL ONE (12:10)
[2020-01-10] MEDS ORDERED: HYDROCODONE/ACETAMINOPHEN 5/325MG TABLET PO PRN (12:45)
[2020-01-10] MEDS: INSULIN LISPRO 100 UNITS/ML SUBCUT SCH ×2 (16:25→21:40)
[2020-01-10] MEDS: CEFAZOLIN 1000MG PREMIX 50 ML IV SCH (16:27)
[2020-01-10] MEDS: ATORVASTATIN CALCIUM 10MG TABLET PO SCH (21:22)
[2020-01-10] MEDS: INSULIN GLARGINE UD 100 UNITS/ML SYR SUBCUT SCH (21:41)
[2020-01-10] MEDS ORDERED: ZOLPIDEM TARTRATE 5MG TABLET PO PRN (23:38)
[2020-01-11 01:48] VITALS: BP 105/68
[2020-01-11] MEDS: CEFAZOLIN 1000MG PREMIX 50 ML IV SCH (03:12)
[2020-01-11 03:48] VITALS: BP 108/65
[2020-01-11 05:48] VITALS: BP 120/80
[2020-01-11] MEDS: BLOOD SUGAR DIAGNOSTIC STRIP TEST SCH ×2 (06:03→11:50)
[2020-01-11] MEDS: FAMOTIDINE 20MG TABLET PO SCH ×2 (06:11→08:22)
[2020-01-11 06:39] LABS: BASOPHILS % 0.3 % (0.0-2.0); HEMATOCRIT. 37.2 % (42.0-52.0); HEMOGLOBIN. 11.7 g/dL (14.0-18.0); LYMPHOCYTES % 11.6 % (20.0-50.0); MEAN CORPUSCULAR HEMOGLOBIN 23.3 pg (28.0-32.0); MEAN PLATELET VOLUME 8.2 fl (7.4-10.4); MONOCYTES % 5.5 % (2.0-8.0); NEUTROPHILS % 82.6 % (40.0-76.0); PLATELET 244 x1000/uL (130-400); RED BLOOD CELL COUNT 5.03 mill/uL (4.7-6.1); RED CELL DISTRIBUTION WIDTH 22.7 % (11.6-14.6)
[2020-01-11 06:45] LABS: CHLORIDE 97 mEq/L (98-107)
[2020-01-11] MEDS: LISINOPRIL 2.5MG TABLET PO SCH (08:10)
[2020-01-11] MEDS: GABAPENTIN 300MG CAPSULE PO SCH (08:11)
[2020-01-11] MEDS: CARVEDILOL 3.125 MG TABLET PO SCH (08:11)
[2020-01-11] MEDS: INSULIN LISPRO 100 UNITS/ML SUBCUT SCH ×3 (08:12→17:20)
[2020-01-11] MEDS ORDERED: FUROSEMIDE 40MG TABLET PO SCH (09:00)
[2020-01-11] MEDS ORDERED: DOCUSATE SODIUM 250MG CAPSULE PO SCH (09:15)
[2020-01-11] MEDS: CLOPIDOGREL 75MG TABLET PO SCH (10:31)
[2020-01-11] MEDS: FERROUS SULFATE 325MG TABLET PO SCH ×2 (10:32→14:16)
[2020-01-11] MEDS ORDERED: POTASSIUM CHLORIDE 20MEQ TABLET SR PO SCH (12:15)
[2020-01-11 16:12] VITALS: BP 114/60
[2020-01-15 06:07] LABS: ANA IFA Negative (.)
== END 2020-01-11 19:19 | disposition home or self-care (01) | DRG 222 ==
LOC: ER 16:06 → EDBEDREQTM 18:22 → EDBEDREQ 18:22 → 3WST 18:36 → EDBEDREQ 18:39 → EDBEDREQTM 18:39 → EDBEDREQSVC 19:02 → EDBEDREQTM 19:02 → EDBEDREQSVC 21:25 → ENRESERV 22:25
PROVIDERS: ADMIT Internal Medicine Nephrology; ATTEND Internal Medicine Nephrology
PROC: 0W9G3ZX Drainage of Peritoneal Cavity, Percutaneous Approach, Diagnostic (ICD-10-PCS; principal; 2020-01-09)
PROC: B2111ZZ Fluoroscopy of Multiple Coronary Arteries using Low Osmolar Contrast (ICD-10-PCS; 2020-01-09)
PROC: 4A023N7 Measurement of Cardiac Sampling and Pressure, Left Heart, Percutaneous Approach (ICD-10-PCS; 2020-01-09)
PROC: 02HP32Z Insertion of Monitoring Device into Pulmonary Trunk, Percutaneous Approach (ICD-10-PCS; 2020-01-09)
PROC: B5171ZZ Fluoroscopy of Left Subclavian Vein using Low Osmolar Contrast (ICD-10-PCS; 2020-01-09)
PROC: 0JH608Z Insertion of Defibrillator Generator into Chest Subcutaneous Tissue and Fascia, Open Approach (ICD-10-PCS; 2020-01-09)
PROC: 02HK3KZ Insertion of Defibrillator Lead into Right Ventricle, Percutaneous Approach (ICD-10-PCS; 2020-01-09)
DX: I13.0 Hypertensive heart and chronic kidney disease with heart failure and stage 1 through stage 4 chronic kidney disease, or unspecified chronic kidney disease (principal); I49.01 Ventricular fibrillation; I50.23 Acute on chronic systolic (congestive) heart failure; E43 Unspecified severe protein-calorie malnutrition; R18.8 Other ascites; E87.3 Alkalosis; N17.9 Acute kidney failure, unspecified; D64.9 Anemia, unspecified; I25.110 Atherosclerotic heart disease of native coronary artery with unstable angina pectoris; I25.5 Ischemic cardiomyopathy; E87.6 Hypokalemia; E11.21 Type 2 diabetes mellitus with diabetic nephropathy; E11.319 Type 2 diabetes mellitus with unspecified diabetic retinopathy without macular edema; E11.42 Type 2 diabetes mellitus with diabetic polyneuropathy; E11.51 Type 2 diabetes mellitus with diabetic peripheral angiopathy without gangrene; E78.5 Hyperlipidemia, unspecified; E83.39 Other disorders of phosphorus metabolism; H54.8 Legal blindness, as defined in USA; F51.04 Psychophysiologic insomnia; I50.82 Biventricular heart failure; N40.0 Benign prostatic hyperplasia without lower urinary tract symptoms; I27.29 Other secondary pulmonary hypertension; Z20.828 Contact with and (suspected) exposure to other viral communicable diseases; D50.9 Iron deficiency anemia, unspecified; E11.65 Type 2 diabetes mellitus with hyperglycemia; E11.22 Type 2 diabetes mellitus with diabetic chronic kidney disease; Z72.0 Tobacco use; Z79.4 Long term (current) use of insulin; I25.2 Old myocardial infarction; Z95.5 Presence of coronary angioplasty implant and graft; Z79.02 Long term (current) use of antithrombotics/antiplatelets; Z79.82 Long term (current) use of aspirin; Z86.73 Personal history of transient ischemic attack (TIA), and cerebral infarction without residual deficits; Z89.512 Acquired absence of left leg below knee; Z90.49 Acquired absence of other specified parts of digestive tract; Z91.041 Radiographic dye allergy status; Z95.810 Presence of automatic (implantable) cardiac defibrillator; Z68.30 Body mass index [BMI] 30.0-30.9, adult
CPT/HCPCS: 33249; 36415; 36573; 36600; 49083; 71045; 71250; 75820; 76700; 76705; 76937; 80048; 80053; 80076; 82150; 82375; 82607; 82728; 82746; 82805; 82962; 82977; 83036; 83516; 83540; 83550; 83615; 83735; 83880; 84100; 84484; 85014; 85018; 85025; 86256; 86803; 86850; 86900; 87340; 88108; 88312; 93005; 93306; 93451; 93458; 93641; 96374; 99291; C1722; C1725; C1760; C1769; C1887; C1893; C1894; C1899; J0690; J1200; J1580; J1644; J1650; J1720; J1815; J1940; J2250; J2260; J2704; J3010; J3475; J3490; J7060; Q9967

== ENCOUNTER → 2020-12-08 | Day surgery (SDC) | payer MEDICARE, OTHER ==
[~2020-12-08] MED LIST changes: +CLOP-31 PO; -CLOP75TA4 PO; +LIDOCAINE HCL 1% 20ML VIAL (Pyxis) INJ ONE; +REV20 MT; +SODIUM BICARBONATE 4% (2.4MEQ) 5ML VIAL IV ONE
== END | disposition home or self-care (01) ==
LOC: RAD 08:13
PROVIDERS: ATTEND Specialist
DX: R18.8 Other ascites (principal); Z79.899 Other long term (current) drug therapy; Z79.82 Long term (current) use of aspirin; Z79.84 Long term (current) use of oral hypoglycemic drugs; Z82.49 Family history of ischemic heart disease and other diseases of the circulatory system; Z83.3 Family history of diabetes mellitus
CPT/HCPCS: 49083; 82962; J3490

== ENCOUNTER → 2020-12-08 | Outpatient (CLI) | payer MEDICARE, OTHER ==
[~2020-12-08] MED LIST changes: -LIDOCAINE HCL 1% 20ML VIAL (Pyxis) INJ ONE; -SODIUM BICARBONATE 4% (2.4MEQ) 5ML VIAL IV ONE
== END | disposition home or self-care (01) ==
LOC: LAB 08:30
PROVIDERS: ATTEND Specialist
DX: Z01.812 Encounter for preprocedural laboratory examination (principal); R05 Cough; Z20.822 Contact with and (suspected) exposure to COVID-19
CPT/HCPCS: 87426

== ENCOUNTER 2020-12-18 06:39 | Day surgery (SDC) | payer MEDICARE, OTHER ==
[~2020-12-18] VITALS: Ht 175.3 cm; Wt 91.6 kg
[2020-12-18] MEDS ORDERED: LIDOCAINE HCL 1% 20ML VIAL (Pyxis) INJ ONE ×2 (07:17→07:35)
[2020-12-18] MEDS ORDERED: IODIXANOL 320MG/ML 100 ML BOTTLE IV ONE (07:17)
[2020-12-18] MEDS ORDERED: DIPHENHYDRAMINE 50MG/ML VIAL ONE (07:31)
[2020-12-18] MEDS ORDERED: FAMOTIDINE 20MG/2ML VIAL IV ONE (07:31)
[2020-12-18] MEDS ORDERED: HYDROCORTISONE SOD SUCCINATE 250 MG/2 ML VIAL ONE (07:33)
[2020-12-18] MEDS ORDERED: HEPARIN SODIUM 1,000 UNIT/1ML VIAL IV ONE (08:06)
[2020-12-18] MEDS ORDERED: ATROPINE SULFATE 0.1MG/ML 10ML DISP.SYRIN ONE (09:05)
[2020-12-18] MEDS ORDERED: FENTANYL CITRATE/PF 50MCG/ML 2ML VIAL ONE (09:05)
[2020-12-18] MEDS ORDERED: MIDAZOLAM HCL 2 MG/2 ML VIAL ONE (09:05)
[2020-12-18] MEDS ORDERED: ATROPINE SULFATE 1MG/10ML SYR IV PRN (10:15)
[2020-12-18] MEDS ORDERED: ACETAMINOPHEN 325MG TABLET PO PRN (10:15)
[2020-12-18] MEDS ORDERED: ONDANSETRON HCL 4MG/2ML INJ IV PRN (10:15)
== END 2020-12-18 14:40 | disposition home or self-care (01) ==
LOC: CCL 06:39
PROVIDERS: ATTEND Specialist
DX: I65.21 Occlusion and stenosis of right carotid artery (principal); E11.319 Type 2 diabetes mellitus with unspecified diabetic retinopathy without macular edema; I11.0 Hypertensive heart disease with heart failure; I50.42 Chronic combined systolic (congestive) and diastolic (congestive) heart failure; E78.5 Hyperlipidemia, unspecified; I25.10 Atherosclerotic heart disease of native coronary artery without angina pectoris; I25.2 Old myocardial infarction; I25.5 Ischemic cardiomyopathy; N40.0 Benign prostatic hyperplasia without lower urinary tract symptoms; Z79.4 Long term (current) use of insulin; Z86.73 Personal history of transient ischemic attack (TIA), and cerebral infarction without residual deficits; Z88.5 Allergy status to narcotic agent; Z88.8 Allergy status to other drugs, medicaments and biological substances; Z89.512 Acquired absence of left leg below knee; Z95.5 Presence of coronary angioplasty implant and graft; Z95.810 Presence of automatic (implantable) cardiac defibrillator; Z79.899 Other long term (current) drug therapy; Z98.890 Other specified postprocedural states; Z20.822 Contact with and (suspected) exposure to COVID-19
CPT/HCPCS: 36223; 82962; 87426; C1760; C1769; C1893; J0461; J1200; J1644; J1720; J2250; J3010; J3490; Q9967; 36227

== ENCOUNTER → 2020-12-18 | Outpatient (CLI) | payer MEDICARE, MEDICAID | END | disposition home or self-care (01) | LOC: LAB 07:17 | PROVIDERS: ATTEND Specialist | DX: R05 Cough (principal); Z20.822 Contact with and (suspected) exposure to COVID-19 | CPT/HCPCS: 87426 ==

== ENCOUNTER → 2021-01-30 | Day surgery (SDC) | payer MEDICARE, MEDICAID ==
[~2021-01-30] MED LIST changes: +LIDOCAINE HCL 1% 20ML VIAL (Pyxis) INJ ONE; +SODIUM BICARBONATE 4% (2.4MEQ) 5ML VIAL IV ONE; -ZOLP10TA2 PO
== END | disposition home or self-care (01) ==
LOC: ANGIO 08:48
PROVIDERS: ATTEND Specialist
DX: R18.8 Other ascites (principal); Z79.82 Long term (current) use of aspirin; Z79.4 Long term (current) use of insulin; Z79.899 Other long term (current) drug therapy; Z98.890 Other specified postprocedural states; Z91.041 Radiographic dye allergy status; Z88.8 Allergy status to other drugs, medicaments and biological substances; Z83.3 Family history of diabetes mellitus; Z82.49 Family history of ischemic heart disease and other diseases of the circulatory system; Z20.822 Contact with and (suspected) exposure to COVID-19
CPT/HCPCS: 49083; 87426; J3490

== ENCOUNTER → 2021-04-30 | Day surgery (SDC) | payer MEDICARE, OTHER ==
[~2021-04-30] MED LIST changes: -CLOP-31 PO; +CLOP75TA4 PO
== END | disposition home or self-care (01) ==
LOC: RAD 08:39
PROVIDERS: ATTEND Specialist
DX: R18.8 Other ascites (principal); Z20.822 Contact with and (suspected) exposure to COVID-19; Z79.82 Long term (current) use of aspirin; Z79.84 Long term (current) use of oral hypoglycemic drugs; Z79.899 Other long term (current) drug therapy; Z88.8 Allergy status to other drugs, medicaments and biological substances; Z82.49 Family history of ischemic heart disease and other diseases of the circulatory system; Z83.3 Family history of diabetes mellitus
CPT/HCPCS: 49083; 87426; J3490

== ENCOUNTER → 2021-07-22 | Day surgery (SDC) | payer MEDICARE, OTHER ==
[~2021-07-22] MED LIST changes: +CLOP-31 PO; -CLOP75TA4 PO; +LIDOCAINE HCL 1% 10 MG/ML 10ML VIAL ONE; -LIDOCAINE HCL 1% 20ML VIAL (Pyxis) INJ ONE
== END | disposition home or self-care (01) ==
LOC: RAD 09:17
PROVIDERS: ATTEND Specialist
DX: R18.8 Other ascites (principal); Z79.82 Long term (current) use of aspirin; Z79.84 Long term (current) use of oral hypoglycemic drugs; Z79.899 Other long term (current) drug therapy; Z91.041 Radiographic dye allergy status; Z88.8 Allergy status to other drugs, medicaments and biological substances; Z20.822 Contact with and (suspected) exposure to COVID-19
CPT/HCPCS: 49083; 87426; J3490

== ENCOUNTER → 2021-09-30 | Day surgery (SDC) | payer MEDICARE, OTHER ==
[~2021-09-30] MED LIST changes: -LIDOCAINE HCL 1% 10 MG/ML 10ML VIAL ONE; +LIDOCAINE HCL 1% 20ML VIAL (Pyxis) INJ ONE
== END | disposition home or self-care (01) ==
LOC: RAD 08:18
PROVIDERS: ATTEND Specialist
DX: R18.8 Other ascites (principal); I25.10 Atherosclerotic heart disease of native coronary artery without angina pectoris; K21.9 Gastro-esophageal reflux disease without esophagitis; I12.9 Hypertensive chronic kidney disease with stage 1 through stage 4 chronic kidney disease, or unspecified chronic kidney disease; E11.22 Type 2 diabetes mellitus with diabetic chronic kidney disease; E11.42 Type 2 diabetes mellitus with diabetic polyneuropathy; N18.9 Chronic kidney disease, unspecified; I73.9 Peripheral vascular disease, unspecified; N40.0 Benign prostatic hyperplasia without lower urinary tract symptoms; E78.5 Hyperlipidemia, unspecified; Z79.82 Long term (current) use of aspirin; Z79.4 Long term (current) use of insulin; Z79.899 Other long term (current) drug therapy; Z98.890 Other specified postprocedural states; Z82.49 Family history of ischemic heart disease and other diseases of the circulatory system; Z83.3 Family history of diabetes mellitus; Z20.822 Contact with and (suspected) exposure to COVID-19
CPT/HCPCS: 49083; 87426; J3490

== ENCOUNTER → 2022-01-07 | Day surgery (SDC) | payer MEDICARE, OTHER ==
[~2022-01-07] MED LIST changes: +LIDOCAINE HCL 1% 10 MG/ML 10ML VIAL ONE; -LIDOCAINE HCL 1% 20ML VIAL (Pyxis) INJ ONE
== END | disposition home or self-care (01) ==
LOC: RAD 10:37
PROVIDERS: ATTEND Specialist
DX: R18.8 Other ascites (principal); R14.0 Abdominal distension (gaseous); Z79.82 Long term (current) use of aspirin; Z79.4 Long term (current) use of insulin; Z79.899 Other long term (current) drug therapy; Z98.890 Other specified postprocedural states; Z88.8 Allergy status to other drugs, medicaments and biological substances
CPT/HCPCS: 49083; J3490

== ENCOUNTER → 2024-01-26 | Day surgery (SDC) | payer MEDICARE, OTHER ==
[~2024-01-26] VITALS: Ht 175.3 cm; Wt 79.4 kg
[~2024-01-26] MED LIST changes: +ACETAMINOPHEN 325MG TABLET PO PRN; +ASPI-1160 PO; +ATROPINE SULFATE 1MG/10ML SYR IV PRN; +CARV3.1242 PO; +CHOL200059 PO; +DAPA10TA PO; +DIPHENHYDRAMINE 50MG/ML VIAL ONE; +FAMOTIDINE 20MG/2ML VIAL IV ONE; +FENTANYL CITRATE/PF 50MCG/ML 2ML VIAL ONE; +FURO-152 PO; +HEPARIN 1000 UNITS/ML 10ML ONE; +IODIXANOL 320MG/ML 100 ML BOTTLE IV ONE; -LIDOCAINE HCL 1% 10 MG/ML 10ML VIAL ONE; +LIDOCAINE HCL 1% 20ML VIAL (Pyxis) INJ ONE; +METHYLPREDNISOLONE SOD SUCC 125MG/2ML (ACT-O-VIAL) ONE; +MIDAZOLAM HCL 2 MG/2 ML VIAL ONE; +MIDO5TAB4 PO; +ONDANSETRON HCL 4MG/2ML INJ IV PRN; -SODIUM BICARBONATE 4% (2.4MEQ) 5ML VIAL IV ONE; +SODIUM CHLORIDE 0.45% 500 ML IV ONE
[2024-01-26 10:32] VITALS: BP 138/94; PULSE 71; RESP 22
[2024-01-26] MEDS: MORPHINE SULFATE 2 MG/ML CPJ (NOT FOR IM USE) IV SCH (10:32)
== END | disposition home or self-care (01) ==
LOC: CCL 06:39
PROVIDERS: ATTEND Specialist
DX: I25.119 Atherosclerotic heart disease of native coronary artery with unspecified angina pectoris (principal); I65.21 Occlusion and stenosis of right carotid artery; I25.5 Ischemic cardiomyopathy; E11.9 Type 2 diabetes mellitus without complications; E78.5 Hyperlipidemia, unspecified; I25.2 Old myocardial infarction; I11.0 Hypertensive heart disease with heart failure; I50.9 Heart failure, unspecified; Z91.041 Radiographic dye allergy status; Z88.8 Allergy status to other drugs, medicaments and biological substances; Z79.82 Long term (current) use of aspirin; Z79.4 Long term (current) use of insulin; Z79.899 Other long term (current) drug therapy; Z98.890 Other specified postprocedural states; Z82.49 Family history of ischemic heart disease and other diseases of the circulatory system; Z83.3 Family history of diabetes mellitus
CPT/HCPCS: 82962; 93458; C1893; C1769; J3010; Q9967; J1200; J3490 ×2; J1644 ×2; J2930; J2250; J2270; Z7610 ×10; C1887 ×2

== ENCOUNTER → 2024-05-01 | Day surgery (SDC) | payer MEDICARE, OTHER ==
[~2024-05-01] MED LIST changes: -ACETAMINOPHEN 325MG TABLET PO PRN; -ASPI-1497 PO; -ATROPINE SULFATE 1MG/10ML SYR IV PRN; -DIPHENHYDRAMINE 50MG/ML VIAL ONE; -FAMOTIDINE 20MG/2ML VIAL IV ONE; -FENTANYL CITRATE/PF 50MCG/ML 2ML VIAL ONE; -HEPARIN 1000 UNITS/ML 10ML ONE; -IODIXANOL 320MG/ML 100 ML BOTTLE IV ONE; +LIDOCAINE HCL 1% 10 MG/ML 10ML VIAL ONE; -LIDOCAINE HCL 1% 20ML VIAL (Pyxis) INJ ONE; -METHYLPREDNISOLONE SOD SUCC 125MG/2ML (ACT-O-VIAL) ONE; -MIDAZOLAM HCL 2 MG/2 ML VIAL ONE; -ONDANSETRON HCL 4MG/2ML INJ IV PRN; -REV20 MT; +SODIUM BICARBONATE 4% 2.4MEQ/5ML VIAL IV ONE; -SODIUM CHLORIDE 0.45% 500 ML IV ONE
== END | disposition home or self-care (01) ==
LOC: RAD 08:40
PROVIDERS: ATTEND Specialist
DX: R18.8 Other ascites (principal); Z79.82 Long term (current) use of aspirin; Z79.4 Long term (current) use of insulin; Z79.899 Other long term (current) drug therapy; Z91.041 Radiographic dye allergy status; Z88.8 Allergy status to other drugs, medicaments and biological substances; Z82.49 Family history of ischemic heart disease and other diseases of the circulatory system; Z83.3 Family history of diabetes mellitus; Z98.890 Other specified postprocedural states
CPT/HCPCS: 49083; J3490 ×2